=== PATIENT | female | born 1970 | race Caucasian/White ===

== ENCOUNTER 2019-09-05 16:33 | Emergency (ER) | payer BC ==
[2019-09-05 17:25] VITALS: BP 119/72
--- NOTE | 2019-09-05 17:47 | UC ---
Ear Complaint HPI - HPI Summary HPI Summary: 49 y/o female presents to the urgent care c/o a silver ball from an ear piercing in her right ear about 2 hrs ago. Pt states pressure like feeling 2/ 10. Pt states she was removing her piercing when the little silver ball fell of her external ear canal. Pt denies fever, drainage, LAGUERRE, dizziness, SOB, chest pain, abdominal pain, N/V/D. - History of Current Complaint Chief Complaint: UCForeignBody Stated Complaint: FOREIGN OBJECT IN EAR Time Seen by Provider: 09/05/19 17:34 Hx Obtained From: Patient Hx Last Menstrual Period: 09/02/19 ?: No Onset/Duration: Sudden Onset, Lasting Hours - 2 hrs ago, Still Present Severity Initially: Mild Pain Intensity: 2 - RT ear pressure Pain Scale Used: 0-10 Numeric Aggravating Factors: FB Alleviating Factors: Nothing Associated Signs/Symptoms: Positive: Foreign Body Sensation - Allergies/Home Medications Allergies/Adverse Reactions: Allergies Allergy/AdvReac Type Severity Reaction Status Date / Time latex Allergy Rash Verified 09/05/19 17:25 Home Medications: Home Medications ALPRAZolam [Xanax] 1 tab PO TID PRN 09/05/19 [History Confirmed 09/05/19] Citalopram Hydrobromide [Citalopram HBr] 1 tab PO DAILY 09/05/19 [History Confirmed 09/05/19] Divalproex Sodium [Depakote ER] 1 tab PO DAILY 09/05/19 [History Confirmed 09/05] PMH/Surg Hx/FS Hx/Imm Hx Previously Healthy: Yes - Pt denies PMHX - Surgical History Surgical History: Yes Surgery Procedure, Year, and Place: x 4. ruf[place]. L shoulder surgery. L hand surgery - Family History Known Family History: Positive: Cardiac Disease, Hypertension, Diabetes - Social History Occupation: Employed Full-time Lives: With Family Alcohol Use: Occasionally Substance Use Type: None Smoking Status (MU): Light Every Day Tobacco Smoker Type: Cigarettes Amount Used/How Often: 1/2 pack daily Household Exposure Type: Cigarettes - Immunization History Most Recent Influenza Vaccination: not this season Review of Systems All Other Systems Reviewed And Are Negative: Yes Constitutional: Positive: Negative Skin: Positive: Negative Eyes: Positive: Negative ENT: Positive: Ear Ache - RT ear w/ a silver ball from her earing Respiratory: Positive: Negative Cardiovascular: Positive: Negative Gastrointestinal: Positive: Negative Genitourinary: Positive: Negative Motor: Positive: Negative Neurovascular: Positive: Negative Musculoskeletal: Positive: Negative Neurological: Positive: Negative Psychological: Positive: Negative Is Patient Immunocompromised?: No Physical Exam - Summary Physical Exam Summary: Vital signs: reviewed General: well developed, well nourished female sitting in the examining table w/ o any apparent distress Skin: [place], warm and dry, no evidence of atopic dermatitis, psoriasis, seborrhea. HEENT: -Head: atraumatic, non tender; no scalp dermatitis. -Eyes: sclera and conjunctiva clear, PERRLA, EOMI -Ears: no pre- or postauricular lymphadenopathy or erythema; RT external ear canal with a silver ball, no drainage observed, unable to visualize RT TM. LF external ear canal clear and LF TM WNL. TMs normal w/out bulging or retraction. Good light reflex. No fluid level, vesicles, or bullae. No perforation. -Nose/Face: erythematous and edematous nasal mucosa with clear rhinorrhea, no frontal or maxillary sinus tender to palpation. -Mouth/Throat: Mucous membrane moist, posterior pharynx clear, no erythema or exudates. Neck: supple, FROM, nontender, no lymphadenopathy, no meningismus. Chest: Clear to auscultation, normal breath sounds Abd: soft, Bowel sounds active, Nontender. Back: no spinal or CVAT Neuro: A&O x4, GCS 15, no focal neuro deficits, normal behavior for age. Triage Information Reviewed: Yes Vital Signs: Initial Vital Signs Temp 96.3 F 09/05/19 17:21 Pulse 72 09/05/19 17:21 Resp 18 09/05/19 17:21 BP 119/72 09/05/19 17:21 Pulse Ox 100 09/05/19 17:21 Ear Complaint Course/Dx - Course Course Of Treatment: 49 y/o female presents to the urgent care c/o a silver ball from an ear piercing in her right ear about 2 hrs ago. Pt states pressure like feeling 2/ 10. Pt states she was removing her piercing when the little silver ball fell of her external ear canal. Pt denies fever, drainage, L[place]UER[place], dizziness, SOB, chest pain, abdominal pain, N/V/D. Hx obtained. Pt w/ RT external ear canal with a silver ball, no drainage observed, unable to visualize RT TM on examination. Pt' s FB removed successfully. w/ and ear speculum. Pt tolerated well procedure and felt better. RT external ear canal clear, RT TM WNL. Pt advised if she develops fever or ear pain to return to the urgent care or f/u w/ her PCP for further evaluation and treatment. - Differential Dx/Diagnosis Differential Diagnosis/HQI/PQRI: Cerumen Impaction, Foreign Body, Otitis Media, Perforated TM, URI Provider Diagnosis: Foreign body in right ear Discharge ED - Sign-Out/Discharge Documenting (check all that apply): Patient Departure - D/C home All imaging exams completed and their final reports reviewed: No Studies - Discharge Plan Condition: Stable Disposition: HOME Patient Education Materials: Ear Foreign Body (ED) Referrals: Angel Acevedo MD [Primary Care Provider] - If Needed Additional Instructions: 1- Foreign body was completely removed from the RT external ear canal, If you develop any ear pain or fever, please return to the urgent care or your PCP for further evaluation and treatment. - Billing Disposition and Condition Condition: STABLE Disposition: Home
== END 2019-09-05 18:08 | disposition home or self-care (01) ==
LOC: UCEAST 16:33
DX: T16.1XXA Foreign body in right ear, initial encounter (principal); H92.01 Otalgia, right ear; Z91.040 Latex allergy status; X58.XXXA Exposure to other specified factors, initial encounter; Y92.9 Unspecified place or not applicable
CPT/HCPCS: 99211; G0463